=== PATIENT | female | born 1940 | race Two or more races ===

== ENCOUNTER 2022-06-02 16:55 | Emergency (ER) | payer OTHER ==
[~2022-06-02] VITALS: Ht 165.1 cm; Wt 50.3 kg
--- NOTE | 2022-06-02 17:24 | NUR ---
TO ER BED 4, BIB [facility] 889 FROM HOME,C/O FEELING WEAK AND NAUSEAUS X [address] BAGGAGE PORTER, AAOX3, BREATHING EVEN AND NON LABORED, CONNECTED TO MONITOR, AWAITING MD SOLO
[2022-06-02] MEDS ORDERED: ONDANSETRON HCL/PF 4 MG/2 ML VIAL ONE (17:42)
--- NOTE | 2022-06-02 17:58 | NUR ---
HELICOPTER ENGINEER AT BEDSIDE FOR BLOOD DRAW
[2022-06-02] MEDS ORDERED: ONDANSETRON HCL/PF - ER 4 MG/2 ML VIAL IV ONE (18:00)
[2022-06-02] MEDS ORDERED: ONDANSETRON HCL/PF 4 MG/2 ML VIAL IVP ONE (18:00)
[2022-06-02] MEDS ORDERED: IV NS 0.9% 1,000 ML BAG IV ONE (18:00)
--- NOTE | 2022-06-02 19:11 | NUR ---
URINE COLLECTED AND SENT TO LAB
[2022-06-02 19:29] LABS: CALCIUM, SERUM 8.7 mg/dL (8.5-10.1); CREATININE 0.8 mg/dL (0.6-1.3); POTASSIUM 3.8 mmol/L (3.5-5.1)
--- NOTE | 2022-06-02 19:42 | NUR ---
REPORT RECEIVED FORM [facility]. PATIENT IS A AAOX4. ATTACHED TO MONITOR. VITALS CHECKED. PATIENT NOT COMPLAINING OF PAIN AT THE MOMENT.
[2022-06-02 19:44] LABS: ALBUMIN 3.7 g/dL (3.4-5.0); BILIRUBIN,DIRECT 0.1 mg/dL (0.0-0.2); BILIRUBIN,TOTAL 0.4 mg/dL (0.2-1.0); TOTAL PROTEIN, SERUM 7.5 g/dL (6.4-8.2)
[2022-06-02 19:48] LABS: BILIRUBIN,URINE NEGATIVE (NEGATIVE); COLOR,URINE YELLOW (YELLOW); LEUKOCYTE ESTERASE ,URINE MODERATE (NEGATIVE); NITRITE, URINE NEGATIVE (NEGATIVE); PROTEIN,URINE NEGATIVE (NEGATIVE); UGLUCOSE NEGATIVE (NEGATIVE); UROBILINOGEN,URINE 0.2 EU/dL (0.2)
[2022-06-02 19:57] LABS: BASOPHILS # (AUTO) 0.1 K/uL (0.0-0.2); BASOPHILS % (AUTO) 1.1 % (0.0-2.0); EOSINOPHILS % (AUTO) 1.1 % (0.0-6.0); HEMATOCRIT 42 % (33-45); LYMPHOCYTES # (AUTO) 0.9 K/uL (0.8-4.8); LYMPHOCYTES % (AUTO) 12.5 % (20.0-44.0); MEAN CORPUSCULAR HGB CONC 33 g/dl (31.0-36.0); MEAN CORPUSCULAR VOLUME 92 fL (82-100); MONOCYTES # (AUTO) 0.6 K/uL (0.1-1.30); NEUTROPHILS # (AUTO) 5.5 K/uL (1.8-8.9); NEUTROPHILS % (AUTO) 77.3 % (43.0-81.0); PLATELET COUNT (AUTO) 440 K/uL (150-450); RED BLOOD CELL COUNT(AUTO) 4.61 MIL/uL (4.0-5.2); WHITE BLOOD COUNT (AUTO) 7.1 K/uL (4.3-11.0)
[2022-06-02 19:57] LABS: BACTERIA,URINE 2+ /HPF (None Seen); WBC,URINE 21-50 /HPF (0-3)
[2022-06-02] MEDS ORDERED: CEFTRIAXONE 1GM BAG (ER ONLY) 1 GM/50 ML PIGGYBACK IV ONE (20:00)
[2022-06-02] MEDS ORDERED: CEFTRIAXONE 1GM BAG (ER ONLY) 50 ML IV ONE (20:03)
--- NOTE | 2022-06-02 20:35 | NUR ---
PT CAME BACK FROM CT DEPT
[2022-06-02] MEDS ORDERED: DOXY-326 PO ×2 (21:42→21:49)
--- NOTE | 2022-06-02 21:45 | NUR ---
PREFERRED PHARMACY IS [facility]
--- NOTE | 2022-06-02 22:21 | NUR ---
DASIA EPRP PAGED.
--- NOTE | 2022-06-02 23:10 | NUR ---
[facility] ETA 0011
--- NOTE | 2022-06-02 23:17 | NUR ---
IV CANNULA REMOVED.
--- NOTE | 2022-06-02 23:26 | NUR ---
UNA - DAUGHTER [phone]
--- NOTE | 2022-06-03 00:35 | NUR ---
REPORT GIVEN TO [facility]EE[facility] OF [address]. PATIENT IS GOING HOME VIA AMBULANCE TRANSPORT WITH HER PERSONAL WALKER.
--- NOTE | 2022-06-03 00:50 | NUR ---
Patient discharged to home in stable condition. Written and verbal after care instructions given. Patient verbalizes understanding of instruction.
--- NOTE | 2022-06-03 00:55 | NUR ---
PATIENT IS BEING TRANSPORTED HOME.
[2022-06-03 01:21] VITALS: BP 145/59
== END 2022-06-03 00:55 | disposition home or self-care (01) ==
LOC: ER 17:05
DX: S06.0X9A Concussion with loss of consciousness of unspecified duration, initial encounter (principal); N39.0 Urinary tract infection, site not specified; R42 Dizziness and giddiness; Z79.899 Other long term (current) drug therapy; X58.XXXA Exposure to other specified factors, initial encounter; Y93.89 Activity, other specified; Y92.89 Other specified places as the place of occurrence of the external cause; Y99.8 Other external cause status
CPT/HCPCS: 99285; 72125; 96365; 71045; 96361; 96375; 93005; 70450; 85025; 80048; 87077; 87086; 83690; 80076; 81001; 36415; 85730; 82962; J2405; J7030; J0696